=== PATIENT | male | born 1960 | race Caucasian/White ===

== ENCOUNTER → 2016-04-29 | Outpatient (CLI) | payer BC ==
[2014-01-24 10:51] VITALS: BP 134/86
[~2016-04-29] MED LIST: FLUT1DIS IH; OLME40TA PO; SIMV20TA3 PO
--- NOTE | 2016-04-29 16:45 | CARD ---
APPROVED REPORT EXAM: Two-dimensional and M-mode echocardiogram with Doppler and color Doppler. Other Information Quality : Average Rhythm : NSR INDICATION Murmur 2D DIMENSIONS RVDd3.3 (2.9-3.5cm)Left Atrium(2D)4.0 (1.6-4.0cm) IVSd1.1 (0.7-1.1cm)Aortic Root(2D)3.4 (2.0-3.7cm) LVDd4.8 (3.9-5.9cm)LVOT Diameter2.0 (1.8-2.4cm) PWd1.1 (0.7-1.1cm)LVDs3.5 (2.5-4.0cm) FS (%) 26.6 %SV55.4 ml LVEF(%)57.0 (>50%) Aortic Valve AoV Peak Marito.1.0cm/sAoV VTI26.4cm LVOT Peak Marito.79.4cm/sLVOT VTI 14.73cm AO Mean GR.7mmHgAVA (VTI)1.81cm2 Mitral Valve MV E Aobtpbsc21.2cm/sMV E Peak Gr.82mmHg MV DECEL [id number] A Ygvvaqsa58.6cm/s MV E Mean Gr.1mmHgMV RKF21su E/A Ratio1.1MV A Atteaubb066vv MVA (PHT)3.24cm2 TDI E/Lateral E'7.1E/Medial E'9.0 Pulmonary Valve PV Peak Mfumqaeh006.0cm/sPV Peak Grad.6mmHg RVOT VTI13.7cm Tricuspid Valve TR P. Ipvhpchk125hh/sRAP FFIJIYCT2tsZn TR Peak Gr.04pdHhWPTH51yqWh Pulmonary Vein S1 Nmhnobaj37.8cm/sD2 Ibrvuhbm66.1cm/s LEFT VENTRICLE The left ventricle is normal size. There is normal left ventricular wall thickness. Left ventricle sy stolic function is normal. The Ejection Fraction is 55-60%. There is normal LV segmental wall motion. The left ventricular diastolic function and filling is normal for age. RIGHT VENTRICLE The right ventricle is normal size. The right ventricular systolic function is normal. ATRIA The left atrium size is normal. The right atrium size is normal. The interatrial septum is intact wit h no evidence for an atrial septal defect or patent foramen ovale as noted on 2-D or Doppler imaging. AORTIC VALVE The aortic valve is normal in structure and function. The aortic valve is trileaflet. Doppler and Col or Flow revealed no significant aortic regurgitation. There is no significant aortic valvular stenosi s. MITRAL VALVE The anterior mitral valve leaflet is thickened. There is no mitral valve stenosis. Doppler and Color Flow revealed moderate mitral regurgitation with eccentric jet. TRICUSPID VALVE The tricuspid valve is normal in structure and function. Doppler and Color Flow revealed trace to mil d tricuspid regurgitation. The PA pressure was estimated at 28 mmHg. There is no tricuspid valve sten osis. PULMONIC VALVE The pulmonic valve is not well visualized. Doppler and Color Flow revealed no pulmonic valvular regur gitation. There is no pulmonic valvular stenosis. GREAT VESSELS The aortic root is normal in size. Normal pulmonary venous flow (Doppler). The IVC is normal in size and collapses >50% with inspiration. PERICARDIAL EFFUSION There is no evidence of significant pericardial effusion. Critical Notification Critical Value: No <Conclusion> Left ventricle systolic function is normal. The Ejection Fraction is 55-60%. Moderate mitral regurgitation with eccentric jet. Trace to mild tricuspid regurgitation. The PA pressure was estimated at 28 mmHg. There is no evidence of significant pericardial effusion.
== END | disposition home or self-care (01) ==
LOC: ECHO 08:00
PROVIDERS: ATTEND Internal Medicine Cardiovascular Disease
DX: I34.0 Nonrheumatic mitral (valve) insufficiency (principal); I07.1 Rheumatic tricuspid insufficiency
CPT/HCPCS: 93306

== ENCOUNTER → 2019-01-13 | Day surgery (SDC) | payer BC ==
[~2019-01-13] MED LIST changes: +HYDROmorphone 2 MG/ML VIAL IV PRN; +IV RINGERS,LACTATED 1000ML 1,000 ML IV SCH; +MORPHINE SULFATE 2 MG/ML VIAL. IV PRN; -OLME40TA PO; +OLME40TA12 PO; +ONDANSETRON PF 4 MG/2 ML VIAL. IV PRN; +PROCHLORPERAZINE 10 MG/2 ML VIAL. IV PRN; +PROPOFOL 20 ML IV ONE; +PROPOFOL 40 ML IV ONE; +SIMV20TA18 PO; -SIMV20TA3 PO; +fentaNYL PF VIAL 100 MCG/2 ML VIAL IV PRN
[2019-01-13 13:02] VITALS: BP 131/82
--- NOTE | 2019-01-16 14:06 | PATHOLOGY ---
[facility] Accession Number: [id number] . 01 Material submitted: . colon - POLYP AT 50CM . 01 Clinical history: . Screening . 02 Diagnosis: Colon biopsies, polyp at 50 cm: - Tubular adenoma. (JPM:chastity; 01/16/2019) QMS 01/16/2019 0911 Local . 02 Comment: There is no high grade dysplasia or evidence of malignancy. (JPM:chastity; 01/16/2019) . 02 Electronically signed: . Mairo Miller MD, Pathologist NPI- [id number] . 01 Gross description: . Received in formalin labeled "Dorian Davis, polyp at 50 cm," are 2 segments of lopez soft tissue measuring 0.9 x 0.2 x 0.2 cm in aggregate dimensions and ranging from 0.4 to 0.5 cm in maximum dimension. The specimen is submitted entirely in cassette A1. (TSD; 01/13/2019) TOB/TOB 01/13/2019 1824 Local . 02 Pathologist provided ICD-10: D12.6 . 02 CPT . 641320 Specimen Comment: A courtesy copy of this report has been sent to [phone], [phone] Specimen Comment: [id number] Specimen Comment: Report sent to / DR MARY Performed at: 01 [facility] [address] [facility] [address], [place] [id number] MD Andrew Chacko MD Phone: [phone] Performed at: 02 [facility] [address] [place], [place] [id number] MD Mario Miller MD Phone: [phone]
== END ==
LOC: ENDOS 11:31
PROVIDERS: ATTEND Surgery
DX: Z12.11 Encounter for screening for malignant neoplasm of colon (principal); D12.5 Benign neoplasm of sigmoid colon; K57.30 Diverticulosis of large intestine without perforation or abscess without bleeding; I10 Essential (primary) hypertension; E78.00 Pure hypercholesterolemia, unspecified; K21.9 Gastro-esophageal reflux disease without esophagitis; M10.9 Gout, unspecified; E66.9 Obesity, unspecified; Z68.34 Body mass index [BMI] 34.0-34.9, adult; Z89.021 Acquired absence of right finger(s)
CPT/HCPCS: 45380; 88305; J2704; 45384